=== PATIENT | female | born 1990 | race Caucasian/White ===

== ENCOUNTER 2019-07-04 16:12 | Emergency (ER) | payer BC ==
--- NOTE | 2019-07-04 16:40 | PDOC ---
History of Present Illness - General Chief Complaint: Wound Stated Complaint: RT 3RD DIGIT WOUND/CUTS Time Seen by Provider: 07/04/19 16:14 History Source: Patient Exam Limitations: No Limitations - History of Present Illness Initial Comments: 07/04/19 16:35 29 yo F with no pmhx here with c/o right finger swelling redness and rash, has noted right ring finger scaling and cracking dryness for several months. today at her job where she works at [employer] someone mentioned to her may be infected. deneis fever or chills. statse she had breast implants few months ago and was treated with prophylactic antiobiotics felt got temporaritly improved. has also had similar rash on other hand . no jewelry on that hand. no h/o eczema. no rash other areas. no new lotisons. doesnot use cleanign materials at job. Past History - Past Medical History Allergies/Adverse Reactions: Allergies Allergy/AdvReac Type Severity Reaction Status Date / Time No Known Allergies Allergy Verified 07/04/19 16:17 Home Medications: Ambulatory Orders Clotrimazole [Lotrimin 1% Cream -] 1 applic TP BID #1 tube 07/04/19 Triamcinolone 0.1% Ointment [Aristocort 0.1% Ointment -] 1 applic TP BID #120 tube 07/04/19 Asthma: No Cancer: No Cardiac Disorders: No Diabetes: No HTN: No Seizures: No Thyroid Disease: No - Reproductive History (#): 1 Para: 0 - Immunization History Immunization Up to Date: Yes - Suicide/Smoking/Psychosocial Hx Smoking Status: No Smoking History: Never smoked Have you smoked in the past 12 months: No Number of Cigarettes Smoked Daily: 0 Hx Alcohol Use: No Drug/Substance Use Hx: No Hx Substance Use Treatment: No Review of Systems - Review of Systems Constitutional: No: Diaphoresis Respiratory: No: Cough, Orthopnea Cardiac (ROS): No: Chest Pain ABD/GI: No: Abdominal Distended Integumentary: Yes: Pruritus, Rash All Other Systems: Reviewed and Negative *Physical Exam - Physical Exam Comments: 07/04/19 16:37 awake alert lungs clear bilat heart rrr no mrg right hand ring finger with scaling dry rash to radial side wtih cracking. mild erythema and warmth. no oozing no purulence. distally n/v intact. left hand small finger similar rash. no vesicles. Medical Decision Making - Medical Decision Making 07/04/19 16:38 differential diagnosis includes contact dermatitis/ eczema. fungal infection possible from gym, superimposed cellulitis. other chronic condition of skin such as skin ca. plan will treat with topical fungal cream, if no improvement after 1 week of treatment pt told to add steroids cream. oral antiobiotics clindamycin given . referral to dermatology for definitive evalution. biopsy or skin shavinga nd test for fungal infection 07/04/19 16:46 *DC/Admit/Observation/Transfer Diagnosis at time of Disposition: Tinea manuum, Dermatitis - Discharge Dispostion Disposition: HOME Condition at time of disposition: Improved Decision to Admit order: No - Prescriptions Prescriptions: Clotrimazole [Lotrimin 1% Cream -] 1 applic TP BID #1 tube Triamcinolone 0.1% Ointment [Aristocort 0.1% Ointment -] 1 applic TP BID #120 tube - Referrals Referrals: Isela Redman MD [Staff Physician] - - Patient Instructions Printed Discharge Instructions: DI for Ringworm, Contact Dermatitis Additional Instructions: you need to follow up wtih a medicare biller. take clindamycin 300 mg three times daily x 7 days. you should also use a topical antifungal cream called lotrim ( clotrimazole) to your hand twice daily. keep coverd while at work. if no improvement with antifungal after few weeks, you can try to add triamcinolone cream ( prescription sent) follow up with your primary doctor. see referral information for dr redman call to schedule appointment next available. - Post Discharge Activity
[2019-07-04 16:49] VITALS: BP 118/78; PULSE 87; TEMP 97.8; BMI 22.4
== END 2019-07-04 17:14 | disposition home or self-care (01) ==
LOC: FER 16:12
DX: L30.9 Dermatitis, unspecified (principal); B35.2 Tinea manuum
CPT/HCPCS: 99283-25

== ENCOUNTER 2019-12-16 15:52 | Emergency (ER) | payer BC ==
--- NOTE | 2019-12-16 16:04 | PDOC ---
History of Present Illness - General Chief Complaint: Vomiting/Diarrhea Stated Complaint: VOMITING, DIARRHEA Time Seen by Provider: 12/16/19 16:04 - History of Present Illness Initial Comments: HPI: 29yo F with no reported PMH presenting with chills, nausea, vomiting, diarrhea, and muscle aches. Patient states her symptoms feel like when she last had the flu in 2016. Did not get a flu shot this season. Sick contacts include a family member who had the flu. Patient has been unable to tolerate po intake, having only eaten a cracker today. About nine episodes of nonbloody diarrhea since yesterday as well as nine episodes of nonbloody vomiting. Her son has also been vomiting but he did get a flu shot. No chest pain or shortness of breath. LMP was three weeks ago. No recent travel. PCP: None ROS: Constitutional: no fever, +chills HEENT: no throat pain, no dysphagia Cardiovascular: no chest pain, no palpitations Respiratory: no cough, no shortness of breath Gastrointestinal: +nausea, +vomiting, +diarrhea Genitourinary: no dysuria, no hematuria Musculoskeletal: no myalgia, no arthralgia Skin: no rash, no itching Neurologic: no headache, no weakness Psych: no anxiety, no agitation PE: General: Awake, alert, and fully oriented, in no acute distress Head: No signs of trauma Eyes: EOMI, sclera anicteric ENT: Dry mucus membranes Neck: Normal ROM, supple Lungs: Lungs clear, Normal breath sounds Cardio: Regular rhythm, S1 and S2 present Abdomen: Soft, nondistended. Mild diffuse tenderness. No guarding, no rebound, no masses. No CVA tenderness Extremities: Normal range of motion, Distal pulses present SKIN: Warm, Dry, normal turgor Neurologic: Cranial nerves II through XII grossly intact. Normal speech ED Course/MDM: DDX including but not limited to influenza, gastroenteritis, anemia, metabolic derangement, Influenza test IV fluids Zofran Ofirmev Will reassess 12/16/19 16:27 Laboratory Tests 12/16/19 16:20 Urine HCG, Qual Negative test negative 12/16/19 17:22 Patient feeling better. Will initiate po challenge 12/16/19 18:31 Decision made to send lab work given negative influenza test Labs sent 12/16/19 18:48 CBC WBC 6.0 K/mm3 (4.0-10.8) 12/16/19 18:40 RBC 4.84 M/mm3 (3.60-5.2) 12/16/19 18:40 Hgb 14.1 GM/dl (10.7-15.3) 12/16/19 18:40 Hct 42.3 % (32.4-45.2) 12/16/19 18:40 MCV 87.4 fl (80-96) 12/16/19 18:40 MCH 29.2 pg (25.7-33.7) 12/16/19 18:40 MCHC 33.4 g/dl (32.0-36.0) 12/16/19 18:40 RDW 12.3 % (11.6-15.6) 12/16/19 18:40 Plt Count 165 K/MM3 (134-434) 12/16/19 18:40 MPV 10.1 fl (7.5-11.1) 12/16/19 18:40 Absolute Neuts (auto) 5.1 K/mm3 12/16/19 18:40 Neutrophils % 83.5 % (42.8-82.8) H 12/16/19 18:40 Lymphocytes % 10.3 % (8-40) 12/16/19 18:40 Monocytes % 5.5 % (3.8-10.2) 12/16/19 18:40 Eosinophils % 0.5 % (0-4.5) 12/16/19 18:40 Basophils % 0.2 % (0-2.0) 12/16/19 18:40 No leukocytosis or anemia CMP Sodium 133 mmol/L (136-145) L 12/16/19 18:39 Potassium 3.7 mmol/L (3.5-5.1) 12/16/19 18:39 Chloride 106 mmol/L (98-107) 12/16/19 18:39 Carbon Dioxide 22 mmol/L (21-32) 12/16/19 18:39 Anion Gap 5 MMOL/L (8-16) L 12/16/19 18:39 BUN 24.0 mg/dl (7-18) H 12/16/19 18:39 Creatinine 0.6 mg/dl (0.55-1.3) 12/16/19 18:39 Est GFR (CKD-EPI)AfAm 143.77 12/16/19 18:39 Est GFR (CKD-EPI)NonAf 124.04 12/16/19 18:39 Random Glucose 87 mg/dl (74-106) 12/16/19 18:39 Calcium 7.9 mg/dl (8.5-10) L 12/16/19 18:39 Total Bilirubin 0.7 mg/dl (0.2-1) 12/16/19 18:39 AST 17 U/L (15-37) 12/16/19 18:39 ALT 16 U/L (13-61) 12/16/19 18:39 Alkaline Phosphatase 43 U/L (45-117) L 12/16/19 18:39 Total Protein 6.4 g/dl (6.4-8.2) 12/16/19 18:39 Albumin 3.9 g/dl (3.4-5.0) 12/16/19 18:39 Lipase 140 U/L (73-393) 12/16/19 18:40 Mildly hyponatremic Normal lipase Normal cr No transaminitis Patient tolerate po intake with water; not nauseous Feeling better; muscle aches improved Motrin/tylenol prescription sent to pharmacy Encouraged frequent handwashing at home Work note Referral for primary care Return precautions Stable for discharge Past History - Past Medical History Allergies/Adverse Reactions: Allergies Allergy/AdvReac Type Severity Reaction Status Date / Time No Known Allergies Allergy Verified 07/04/19 16:17 Home Medications: Ambulatory Orders Acetaminophen [Tylenol -] 500 mg PO Q6H PRN #60 tablet 12/16/19 Ibuprofen [Motrin -] 400 mg PO QID PRN #60 tablet 12/16/19 Asthma: No Cancer: No Cardiac Disorders: No COPD: No Diabetes: No HTN: No Seizures: No Thyroid Disease: No - Reproductive History (#): 1 Para: 0 - Immunization History Immunization Up to Date: Yes - Psycho Social/Smoking Cessation Hx Smoking Status: No Smoking History: Never smoked Have you smoked in the past 12 months: No Number of Cigarettes Smoked Daily: 0 Hx Alcohol Use: No Drug/Substance Use Hx: No Hx Substance Use Treatment: No ED Treatment Course - LABORATORY CBC & Chemistry Diagram: 12/16/19 18:40 12/16/19 18:39 Discharge - Discharge Information Problems reviewed: Yes Clinical Impression/Diagnosis: Body aches Condition: Improved Disposition: HOME - Additional Discharge Information Prescriptions: Acetaminophen [Tylenol -] 500 mg PO Q6H PRN #60 tablet PRN Reason: Pain Ibuprofen [Motrin -] 400 mg PO QID PRN #60 tablet PRN Reason: Pain - Follow up/Referral Referrals: [facility] [Provider Group] - Patient Discharge Instructions Patient Printed Discharge Instructions: DI for Viral Syndrome Additional Instructions: You came into the emergency department with chills, body aches, nausea and vomiting. You were given fluids and medications which improved your symptoms. Eat and hydrate throughout the day to prevent dehydration and low blood sugar levels. Follow-up with a primary care provider within 72 hours to discuss this ED visit and to further evaluate your symptoms. Your workup is not complete until you do so. You have been referred to the [facility] in case you do not have a primary care doctor. Call and make an appointment at the number provided. Immediate medical attention is required if you have: any chest pain, palpitations, shortness of breath, severe headaches, changes in vision, episodes of fainting, focal numbness or weakness, any severe abdominal pain, any black tarry stool, or any new or concerning symptoms. If you think you are having an emergency, call for emergency medical services or present to the emergency department right away. - Post Discharge Activity Work/Back to School Note: Back to Work
[2019-12-16 16:10] VITALS: BP 110/71; PULSE 80; TEMP 97.8; BMI 21.7
[2019-12-16] MEDS ORDERED: ONDANSETRON 4 MG/2 ML VIAL IVPUSH ONE (16:14)
--- NOTE | 2019-12-16 16:14 | PDOC ---
Attending Attestation - Resident Resident Name: Jill Cherry - ED Attending Attestation I have performed the following: I have examined & evaluated the patient, The case was reviewed & discussed with the resident, I agree w/resident's findings & plan, Exceptions are as noted - HPI HPI: 12/16/19 16:09 29 yo F with no pmhx here with n/v/d. pt does have positive flu contact of family members with same in last week. has had several episodes of nonbloody nonbilious last episode at 3 pm today. several loose episodes stool, body aches , no rash no recent travel - Physicial Exam PE: 12/16/19 18:29 awake alert lungs clear bilat heart rrrn omrg abd soft nonspecific tenderness. skin warm and dry alert orieneted. x 3. - Medical Decision Making 12/16/19 18:30 pt with n/v/d. likely viral gastroenteritis. feels improved following zofran and ivf. will give trial po challenge. pool kitchen home. 12/16/19 18:38 repeat examination pt abd nontender, tolerating po. given warning signs for appendicitis and warning signs to prompt repeat evluation.
[2019-12-16] MEDS ORDERED: ACETAMINOPHEN 1000 MG/100 ML VIAL (NON FORMULARY) IVPB ONE (16:15)
[2019-12-16] MEDS ORDERED: SODIUM CHLORIDE 1,000 ML IV STA (16:25)
[2019-12-16] MEDS ORDERED: ONDANSETRON 4 MG/2 ML VIAL ONE (16:26)
[2019-12-16] MEDS ORDERED: ACETAMINOPHEN INJECTION 100 ML IVPB ONE (16:26)
[2019-12-16 18:56] LABS: ALBUMIN 3.9 g/dl (3.4-5.0); BILIRUBIN,TOTAL 0.7 mg/dl (0.2-1); CALCIUM 7.9 mg/dl (8.5-10); CREATININE 0.6 mg/dl (0.55-1.3); POTASSIUM 3.7 mmol/L (3.5-5.1); TOT PROT 6.4 g/dl (6.4-8.2)
[2019-12-16 18:59] LABS: BASO % 0.2 % (0-2.0); EOS % 0.5 % (0-4.5); HEMATOCRIT 42.3 % (32.4-45.2); HEMOGLOBIN 14.1 GM/dl (10.7-15.3); LYMPH % 10.3 % (8-40); MCH 29.2 pg (25.7-33.7); MCHC 33.4 g/dl (32.0-36.0); MEAN CELL VOLUME 87.4 fl (80-96); MEAN PLT VOLUME 10.1 fl (7.5-11.1); MONO % 5.5 % (3.8-10.2); NEUT % 83.5 % (42.8-82.8); PLATELET COUNT 165 K/MM3 (134-434); RBC 4.84 M/mm3 (3.60-5.2); RDW 12.3 % (11.6-15.6)
== END 2019-12-16 19:36 | disposition home or self-care (01) ==
LOC: FER 15:52
PROC: 3E033NZ Introduction of Analgesics, Hypnotics, Sedatives into Peripheral Vein, Percutaneous Approach (ICD-10-PCS; principal; 2019-12-16)
PROC: 3E033GC Introduction of Other Therapeutic Substance into Peripheral Vein, Percutaneous Approach (ICD-10-PCS; 2019-12-16)
PROC: 3E0337Z Introduction of Electrolytic and Water Balance Substance into Peripheral Vein, Percutaneous Approach (ICD-10-PCS; 2019-12-16)
DX: R52 Pain, unspecified (principal)
CPT/HCPCS: 36415; 80053; 83690; 84703; 85025; 87804; 99284-25; J0131; J7030